=== PATIENT | female | born 1985 | race Caucasian/White ===

== ENCOUNTER 2016-09-11 17:57 | Emergency (ER) | payer OTHER ==
[~2016-09-11] VITALS: Ht 149.9 cm; Wt 39.6 kg
[2016-09-11 18:01] VITALS: TEMP 36.7; Ht 149.9 cm; Wt 39.6 kg
[2016-09-11 18:45] LABS: URINE APPEARANCE CLEAR (CLEAR); URINE BILIRUBIN NEG (NEG); URINE COLOR YELLOW; URINE EPITHELIAL CELL AUTO >30 /lpf (0-5); URINE NITRITE NEG (NEG); URINE SPECIFIC GRAVITY 1.013 (1.000-1.030); UROBILINOGEN NEG (NEG)
[2016-09-11 18:46] LABS: MANUAL MICROSCOPIC REQUIRED? NO; REVIEW REQ? NO
[2016-09-11 19:00] LABS: BASO % 0.8 %; BASO ABS # 0.05 K/uL (0-0.2); COMPLETE YES; EOS % 3.6 %; HEMATOCRIT 38.3 % (37-47); IG% 0.2 %; LYMPH % 30.5 %; LYMPH ABS # 2.01 K/uL (1.2-3.4); MEAN CELL VOLUME 86.1 fL (80-100); MEAN CORPUSCULAR HEMOGLOBIN 29.2 pg (25-34); MEAN CORPUSCULAR HGB CONC 33.9 g/dl (32-36); MEAN PLATELET VOLUME 10.3 fL (7.4-10.4); MONO % 4.1 %; NEUT % 60.8 %; PLATELET COUNT 344 K/uL (130-400); RED BLOOD COUNT 4.45 M/uL (4.2-5.4); WHITE BLOOD COUNT 6.58 K/uL (4.8-10.8)
[2016-09-11] MEDS ORDERED: LITH1TAB PO (19:04)
[2016-09-11] MEDS ORDERED: TRAZ100T29 PO (19:04)
[2016-09-11] MEDS ORDERED: QUET1TAB34 PO (19:04)
[2016-09-11] MEDS ORDERED: ATV/1 PO ×2 (19:04)
[2016-09-11] MEDS ORDERED: LAMO100T16 PO (19:04)
[2016-09-11 19:12] LABS: BENZODIAZEPINE, URINE NEG (NEG); COCAINE,URINE NEG (NEG); PHENCYCLIDINE, URINE NEG (NEG)
[2016-09-11 19:17] LABS: ALT/SGPT 39 U/L (12-78); AST/SGOT 24 U/L (15-37); BLOOD UREA NITROGEN 7 mg/dl (7-18); BUN/CREATININE RATIO 8.8 (10-20); CALCIUM 8.9 mg/dl (8.5-10.1); CARBON DIOXIDE 27 mmol/L (21-32); CHLORIDE 108 mmol/L (98-107); CREATININE 0.82 mg/dl (0.60-1.20); GLUCOSE 79 mg/dl (70-99); POTASSIUM 3.9 mmol/L (3.5-5.1); SODIUM 142 mmol/L (136-145)
[2016-09-11 19:22] LABS: PREG INTERNAL NEGATIVE QC NEG CLEAR BACKGROUND; PREG INTERNAL POSITIVE QC POS CONTROL LINE
[2016-09-11 19:28] LABS: ALKALINE PHOSPHATASE 30 U/L (45-117)
--- NOTE | 2016-09-11 19:59 | EMERGENCY ROOM VISIT NOTE ---
History Report prepared by Mamie: Gabi Bautista Under the Supervision of: Dr. Vicky Mancilla D.O. First contact with patient: 18:10 Chief Complaint: MENTAL HEALTH EVALUATION Stated Complaint: SEVERE MOOD CHANGE ACUTE PHYCHOTIC CONVERSATION History of Present Illness The patient is a 31 year old female who presents to the Emergency Room with complaints of worsening hallucinations starting 1 year ago. The patient had a miscarriage 1 year ago after which her mental health has been declining. 4 months after she had her miscarriage she ended up in inpatient psychiatric care. She reports that she has been having auditory hallucinations. She states there is an denise and devil on her shoulders telling her to hurt herself. She is also hearing voices of people who and voices of people she does not know who sound demonic and mean. She is hearing voices all day long. They tell her to hurt herself. She used to cut herself when she was a teenager. The voices are telling her to cut again. They do not tell her to harm others. They do not tell her to kill herself. She reports mood changes when she feels like she is enjoying life to wanting to . She admits to using heroin in the past. She was on Effexor for 10 years for anxiety and depression. She was taken off after she began having hallucinations. Since stopping Effexor, she has felt like there is something "misfiring" in her brain. She had a LEEP procedure less than 1 week ago. She is having discharge, but no bleeding. She is feeling some cramping similar to menstrual cramps. Patient states she does see both a counselor and psychiatrist. Source of History: patient Onset: 1 year ago Position: other (mental health) Quality: other (hallucinations) Timing: worsening Note: Pt reports thoughts of hurting herself, mood changes. Pt denies thoughts of hurting others. Review of Systems See HPI for pertinent positives & negatives. A total of 10 systems reviewed and were otherwise negative. Past Medical & Surgical Medical Problems: (1) Anxiety (2) Depression Family History No pertinent family history stated. Social History Smoking Status: Current Every Day Smoker Marital Status: single Occupation Status: unemployed Current/Historical Medications Scheduled Lamotrigine (Lamictal), 200 MG PO DAILY [place] Carbonate Ext Rel (Lithobid Ext Rel), 450 MG PO BID Lorazepam (Ativan), 1 MG PO BID Quetiapine Fumarate (Seroquel), 50-100 MG PO HS Scheduled PRN Lorazepam (Ativan), 1 MG PO Q6H PRN for Anxiety Trazodone Hcl (Trazodone), 1 TAB PO HS PRN for Sleep Allergies Coded Allergies: CI Pigment Blue 63 (Verified Allergy, Unknown, TONGUE NUMB, LIPS SWELL, FINGERS PEEL, 09/11/16) Duloxetine (Verified Allergy, Unknown, TONGUE NUMB, LIPS SWELL, FINGERS PEEL, 09/11/16) Physical Exam Vital Signs Date Time Temp Pulse Resp B/P (MAP) Pulse Ox O2 Delivery O2 Flow Rate FiO2 09/12/16 00:46 92 16 103/68 99 09/11/16 21:40 76 20 95/60 98 Room Air 09/11/16 19:36 78 20 96/59 98 Room Air 09/11/16 18:01 36.7 96 16 97/67 99 Room Air Physical Exam GENERAL: alert, well appearing, well nourished, no distress, non-toxic EYE EXAM: normal conjunctiva, PERRL and EOM's grossly intact OROPHARYNX: no exudate, no erythema, lips, buccal mucosa, and tongue normal and mucous membranes are moist NECK: supple, no nuchal rigidity, no adenopathy, non-tender LUNGS: Clear to auscultation. Normal chest wall mechanics HEART: no murmurs, S1 normal and S2 normal ABDOMEN: abdomen soft, non-tender, normo-active bowel sounds, no masses, no rebound or guarding. BACK: Back is symmetrical on inspection and there is no deformity, no midline tenderness, no CVA tenderness. SKIN: no rashes and no bruising UPPER EXTREMITIES: upper extremities are grossly normal. LOWER EXTREMITIES: No pitting edema. NEURO EXAM: Normal sensorium, cranial nerves II-XII grossly intact, normal speech, no gross weakness of arms, no gross weakness of legs. PSYCH: admits to auditory hallucinations, depression, thoughts of hurting self. Tearful. Medical Decision & Procedures Laboratory Results 09/11/16 18:45 Red Blood Count 4.45, Mean Corpuscular Volume 86.1, Mean Corpuscular Hemoglobin 29.2, Mean Corpuscular Hemoglobin Concent 33.9, Mean Platelet Volume 10.3, Neutrophils (%) (Auto) 60.8, Lymphocytes (%) (Auto) 30.5, Monocytes (%) (Auto) 4.1, Eosinophils (%) (Auto) 3.6, Basophils (%) (Auto) 0.8, Neutrophils # (Auto) 4.00, Lymphocytes # (Auto) 2.01, Monocytes # (Auto) 0.27, Eosinophils # (Auto) 0.24, Basophils # (Auto) 0.05 09/11/16 18:45 Test 09/11/16 18:15 09/11/16 18:45 09/11/16 19:45 09/11/16 23:08 Urine Color YELLOW Urine Appearance CLEAR (CLEAR) Urine pH 7.0 (4.5-7.5) Urine Specific [place] 1.013 (1.000-1.030) Urine Protein NEG (NEG) Urine Glucose (UA) NEG (NEG) Urine Ketones NEG (NEG) Urine Occult Blood NEG (NEG) Urine Nitrite NEG (NEG) Urine Bilirubin NEG (NEG) Urine Urobilinogen NEG (NEG) Urine Leukocyte Esterase TRACE (NEG) Urine WBC (Auto) 1-5 /hpf (0-5) Urine RBC (Auto) 0-4 /hpf (0-4) Urine Hyaline Casts (Auto) 1-5 /lpf (0-5) Urine Epithelial Cells (Auto) >30 /lpf (0-5) Urine Bacteria (Auto) NEG (NEG) Urine Opiates Screen NEG (NEG) Urine Methadone, Qualitative NEG (NEG) Urine Barbiturates NEG (NEG) Urine Phencyclidine (PCP) Level NEG (NEG) Ur Amphetamine/Methamphetamine NEG (NEG) MDMA (Ecstasy) Screen NEG (NEG) Urine Benzodiazepines Screen NEG (NEG) Urine Cocaine Metabolite NEG (NEG) Urine Marijuana (THC) NEG (NEG) White Blood Count 6.58 K/uL (4.8-10.8) Red Blood Count 4.45 M/uL (4.2-5.4) Hemoglobin 13.0 g/dL (12.0-16.0) Hematocrit 38.3 % (37-47) Mean Corpuscular Volume 86.1 fL (80-100) Mean Corpuscular Hemoglobin 29.2 pg (25-34) Mean Corpuscular Hemoglobin Concent 33.9 g/dl (32-36) Platelet Count 344 K/uL (130-400) Mean Platelet Volume 10.3 fL (7.4-10.4) Neutrophils (%) (Auto) 60.8 % Lymphocytes (%) (Auto) 30.5 % Monocytes (%) (Auto) 4.1 % Eosinophils (%) (Auto) 3.6 % Basophils (%) (Auto) 0.8 % Neutrophils # (Auto) 4.00 K/uL (1.4-6.5) Lymphocytes # (Auto) 2.01 K/uL (1.2-3.4) Monocytes # (Auto) 0.27 K/uL (0.11-0.59) Eosinophils # (Auto) 0.24 K/uL (0-0.5) Basophils # (Auto) 0.05 K/uL (0-0.2) RDW Standard Deviation 45.0 fL (36.4-46.3) RDW Coefficient of Variation 14.3 % (11.5-14.5) Immature Granulocyte % (Auto) 0.2 % Immature Granulocyte # (Auto) 0.01 K/uL (0.00-0.02) Anion Gap 7.0 mmol/L (3-11) Est Creatinine Clear Calc Drug Dose 62.7 ml/min Estimated GFR () 111.3 Estimated GFR (Non- 96.0 BUN/Creatinine Ratio 8.8 (10-20) Calcium Level 8.9 mg/dl (8.5-10.1) Total Bilirubin 0.2 mg/dl (0.2-1) Direct Bilirubin < 0.1 mg/dl (0-0.2) Aspartate Amino Transf (AST/SGOT) 24 U/L (15-37) Alanine Aminotransferase (ALT/SGPT) 39 U/L (12-78) Alkaline Phosphatase 30 U/L (45-117) Total Protein 7.1 gm/dl (6.4-8.2) Albumin 3.7 gm/dl (3.4-5.0) Thyroid Stimulating Hormone (TSH) 4.560 uIu/ml (0.300-4.500) Human Chorionic Gonadotropin, Qual NEG (NEG) [place] Level 0.8 mMOL/L (0.6-1.2) Ethyl Alcohol mg/dL 37.0 mg/dl (0-3) Laboratory results per my review. ED Course 181: The patient was evaluated in room A6. A complete history and physical exam was performed. 0: I spoke at length with the patient's mother regarding the patient's psychiatric history and past drug use. 2350: I reevaluated the patient. She has markedly improved after becoming sober. I had an extensive bedside discussion and re-evealuation with the patient and then with her mother. The patient is able to contract for safety. This was signed by mom and also witnessed by myself. She will be discharged home with her mother. Patient has appointment this week over the scheduled with her counselor and psychiatrist. I discussed at length with patient and mom concern for alcohol use, medications, as well as her original presentation of hallucinations. Patient states that she has been having the hallucinations since January and both her counselor and psychiatrist are aware. They've been trying to continue to adjust her medications. Patient at length adamantly denies any current suicidal ideation or hx of SI/attempt states "I would never hurt myself because I'm Muslim". Pt states hx of cutting and under times of stress does consider cutting again but only to relieve stress. Patient has never had any thoughts towards hurting anyone else. Plan is for patient to remain with mother and father whom she currently lives with. Mother is off the rest of this week and states she will not be alone at any time. Mom does have to work this weekend, however states she will be with her father at this time. I discussed with them if at any point in time she is not feeling well is not acting appropriately appears to be responding to internal stimuli, or they have any concerns they should immediately take her to the closest emergency room. Medical Decision Differential diagnosis: Etiologies such as mood disorder, infection, hypoglycemia, electrolyte abnormalities, cardiac sources, intracerebral event, toxicologic, neurologic, as well as others were entertained. Medication Reconciliation: I attest that I have personally reviewed the patient' s current medication list. Blood pressure screening: Patient was found to have normal blood pressure on screening and does not require follow-up. Impression Primary Impression: Hallucination Additional Impressions: Depression Alcohol intoxication Scribe Attestation The scribe's documentation has been prepared under my direction and personally reviewed by me in its entirety. I confirm that the note above accurately reflects all work, treatment, procedures, and medical decision making performed by me. Departure Information Dispostion Home / Self-Care Forms HOME CARE DOCUMENTATION FORM, IMPORTANT VISIT INFORMATION Patient Instructions My [facility] Additional Instructions Please keep your appointments this week with your psychiatrist and counselor. Please take your medications as prescribed. Do not drink alcohol. If you begin to experience any hallucinations, feel more depressed, develop more anxiety, or not feeling well in any other way, please return the emergency room immediately. Problem Qualifiers Additional Impressions: Depression Depression Type: major depressive disorder Major depression recurrence: recurrent Active/Remission status: currently active Major depression episode severity: mild Qualified Codes: F33.0 - Major depressive disorder, recurrent , mild Alcohol intoxication Complication of substance-induced condition: uncomplicated Qualified Codes: F10.920 - Alcohol use, unspecified with intoxication, uncomplicated
[2016-09-12 00:46] VITALS: BP 103/68; PULSE 92; O2SAT 99
== END 2016-09-12 00:46 | disposition home or self-care (01) ==
LOC: C.EDB 17:58 → C.EDA 09-12 00:46
DX: R44.0 Auditory hallucinations (principal); F33.0 Major depressive disorder, recurrent, mild; F10.920 Alcohol use, unspecified with intoxication, uncomplicated; F41.9 Anxiety disorder, unspecified; F17.200 Nicotine dependence, unspecified, uncomplicated; Z79.899 Other long term (current) drug therapy